=== PATIENT | male | born 1970 | race Caucasian/White ===

== ENCOUNTER 2021-05-13 20:16 | Emergency (ER) | payer OTHER, SELFPAY ==
[2021-05-13 20:28] VITALS: BP 148/93; PULSE 73; RESP 14; TEMP 36.7; O2SAT 99
--- NOTE | 2021-05-13 21:26 | ED.NECK ---
HPI - Neck Pain/Injury General Chief Complaint: Neck Pain/Injury Stated Complaint: left shoulder and neck pain Time Seen by Provider: 05/13/21 21:17 History of Present Illness HPI Narrative: Patient is putting some equipment together at work with his upper extremity when he felt a sudden of left shoulder pain that radiated up into his neck. His symptoms persisted throughout the day particularly with moving his left shoulder. He was concerned since it was not resolving so he came to the ER for evaluation. His pain sharp, intermittent, worse with using his left upper extremity, radiates up his neck. Related Data Home Medications Medication Instructions Recorded Confirmed aspirin 81 mg tablet,delayed 81 mg PO DAILY 09/25/20 release atorvastatin 80 mg tablet 80 mg PO DAILY 09/25/20 fenofibric acid (choline) 135 mg 135 mg PO DAILY 09/25/20 capsule,delayed release nebivolol 5 mg tablet 5 mg PO DAILY 09/25/20 omeprazole magnesium 20 mg 20 mg PO DAILY 09/25/20 tablet,delayed release Allergies Allergy/AdvReac Type Severity Reaction Status Date / Time No Known Allergies Allergy Verified 05/13/21 21:27 Review of Systems Review of Systems: CONSTITUTIONAL: Denies fever, chills, or sweats. EYES: Denies visual changes, redness, or discharge. ENT: Denies rhinorrhea, congestion, sore throat, or otalgia. CARDIOVASCULAR: Denies chest pain, palpitations, or edema. RESPIRATORY: Denies cough or dyspnea. GASTROINTESTINAL: Denies abdominal pain, nausea, vomiting, or diarrhea. GENITOURINARY: Denies dysuria or hematuria. SKIN: Denies rash or itching. MUSCULOSKELETAL: Denies back pain, joint pain, or myalgia. NEUROLOGIC: Denies headache, numbness, dizziness, or weakness. PSYCHIATRIC: Denies anxiety or depression. All systems reviewed & are unremarkable except as noted in HPI and below PMFSH Past Medical History Medical History Cardiac arrest Family History Family History Father Diabetes mellitus Hypertension Mother Heart disease Grandparent Diabetes mellitus Depression Grandparent Cancer Social History Social History Smoking status: Never smoker Alcohol intake: current Substance use: never Substance use type: does not use Exam Narrative: GENERAL: Well-appearing, well-nourished, and in no acute distress. HEAD: Normocephalic, atraumatic. EYES: PERRLA and EOMI. ENT: Nares clear, no rhinorrhea or epistaxis. Mucous membranes moist. NECK: Supple. No masses. EXTREMITIES: Normal range of motion. Mild tenderness to the superior aspect of the left shoulder tracking along the superior aspect of the left trapezius. There is no focal bony tenderness there is no obvious deformity or draining wounds. Distal extremity is neurovascularly intact SKIN: Warm, dry, no rash. NEURO: No focal deficits. Alert and oriented x3. PSYCH: Normal mood and affect. Course Vital Signs Vital signs: Vital Signs Temperature 36.7 C 05/13/21 20:28 Pulse Rate 73 05/13/21 20:28 Respiratory Rate 14 05/13/21 20:28 Blood Pressure 148/93 H 05/13/21 20:28 Pulse Oximetry 99 05/13/21 20:28 Temperature 36.6 C 05/13/21 21:29 Pulse Rate 67 05/13/21 21:29 Respiratory Rate 18 05/13/21 21:29 Blood Pressure 140/95 H 05/13/21 21:29 Pulse Oximetry 98 05/13/21 21:29 MDM - Neck Pain/Injury MDM Narrative Medical decision making narrative: H&P as above, vss, pt looks clinically well, exam without focal neurological compromise, labs/img considered, symptomatic relief available as needed. suspect soft tissue strain, dns fracture, dislocation, cord compromise, major neurovascular compromise. plan to tx/monitor as op w/ pcm f/u findings/plan discussed with pt, pt agree/comfortable with plan, return precautions given Discharge Plan Discharge Clinical
[2021-05-13 21:29] VITALS: BP 140/95; PULSE 67; RESP 18; TEMP 36.6; O2SAT 98
== END 2021-05-13 22:02 | disposition home or self-care (01) ==
LOC: ANHED 21:43
PROVIDERS: Emergency Provider Emergency Medicine; PCP Family Medicine
DX: S16.1XXA Strain of muscle, fascia and tendon at neck level, initial encounter (principal); S46.812A Strain of other muscles, fascia and tendons at shoulder and upper arm level, left arm, initial encounter; X58.XXXA Exposure to other specified factors, initial encounter
CPT/HCPCS: 99283

== ENCOUNTER 2022-11-16 12:54 | Outpatient (CLI) | payer OTHER, SELFPAY ==
[2022-11-16 15:03] LABS: Kit Draw Collected
== END 2022-11-16 12:55 | disposition home or self-care (01) ==
LOC: ANHGOSHLAB 12:55
PROVIDERS: PCP Nurse Practitioner Family; Visit Provider Nurse Practitioner Family
DX: E78.5 Hyperlipidemia, unspecified (principal); Z12.5 Encounter for screening for malignant neoplasm of prostate; I10 Essential (primary) hypertension; Z00.00 Encounter for general adult medical examination without abnormal findings; Z13.0 Encounter for screening for diseases of the blood and blood-forming organs and certain disorders involving the immune mechanism
CPT/HCPCS: 36415